=== PATIENT | male | born 1960 | race Caucasian/White ===

== ENCOUNTER 2019-11-08 02:25 | Emergency (ER) | payer MEDICAID ==
[2019-11-08] MEDS ORDERED: methylPREDNISolone Sodium Succinate 125 MG/2 ML SDV IM ONE (02:36)
[2019-11-08] MEDS ORDERED: Albuterol/Ipratropium 3.0-0.5 MG/3 ML Neb Soln NEB ONE (02:37)
--- NOTE | 2019-11-08 02:46 | EDM.PDOC ---
ED HPI GENERAL MEDICAL PROBLEM - General Chief Complaint: General Stated Complaint: cough and cold x 2 days Time Seen by Provider: 11/08/19 02:35 Source of Information: Reports: Patient History Limitations: Reports: No Limitations - History of Present Illness INITIAL COMMENTS - FREE TEXT/NARRATIVE: Patient presented to the ED because of cough and cold x 2 days. there is no associated fever or chills but c/o dyspnea,although his oxygen saturation is normal. There is no fever/chills and his coughing is mostly non-productive. - Related Data Allergies Allergy/AdvReac Type Severity Reaction Status Date / Time No Known Allergies Allergy Verified 11/08/19 02:35 Home Meds: Home Meds Azithromycin [Zithromax] 250 mg PO DAILY #6 tab 11/08/19 [Rx] predniSONE [Prednisone] 40 mg PO DAILY #10 tablet 11/08/19 [Rx] Past Medical History Respiratory History: Reports: Other (See Below) Other Respiratory History: smoker 1 pack/day for 40 years. - Past Surgical History Musculoskeletal Surgical History: Reports: Other (See Below) Other Musculoskeletal Surgeries/Procedures:: back Sx. Social & Family History - Family History Family Medical History: Noncontributory ED ROS GENERAL - Review of Systems Review Of Systems: See Below Constitutional: Reports: No Symptoms HEENT: Reports: No Symptoms Respiratory: Reports: Shortness of Breath, Wheezing Cardiovascular: Reports: No Symptoms Endocrine: Reports: No Symptoms GI/Abdominal: Reports: Constipation ED EXAM, GENERAL - Physical Exam Exam: See Below Exam Limited By: No Limitations General Appearance: Alert, No Apparent Distress Ears: Normal External Exam, Normal Canal Nose: Normal Inspection, Normal Mucosa, No Blood, Nasal Tenderness Throat/Mouth: Normal Inspection Head: Atraumatic, Normocephalic Neck: Normal Inspection, Supple, Non-Tender, Full Range of Motion Respiratory/Chest: No Respiratory Distress, Lungs Clear, Normal Breath Sounds, No Accessory Muscle Use, Chest Non-Tender, Rhonchi, Wheezing Cardiovascular: Normal Peripheral Pulses, Regular Rate, Rhythm, No Edema GI/Abdominal: Normal Bowel Sounds Course - Vital Signs Text/Narrative:: [id number] solumedrol 125 mg IM x1 ibuprofen 800 mg with tylenol 1000 po x1 zofran 4 mg ODT Last Recorded V/S: Last Vital Signs Temp 36.9 C 11/08/19 02:35 Pulse 91 11/08/19 02:35 Resp 18 11/08/19 02:35 BP 138/87 11/08/19 02:35 Pulse Ox 94 L 11/08/19 02:35 - Orders/Labs/Meds Orders: Active Orders 24 hr Category Date Time Status RT Aerosol Therapy [RC] ASDIRECTED Care 11/08/19 02:37 Active Ondansetron [Zofran ODT] Med 11/08/19 02:49 Active 4 mg PO ONETIME PRN Medication Orders Ondansetron HCl (Zofran Odt) 4 mg PO ONETIME PRN PRN Reason: Nausea Meds: Medications Generic Name Dose Route Start Last Admin Trade Name Freq PRN Reason Stop Dose Admin Ondansetron HCl 4 mg 11/08/19 02:49 Zofran Odt PO ONETIME PRN Nausea Discontinued Medications Generic Name Dose Route Start Last Admin Trade Name Freq PRN Reason Stop Dose Admin Albuterol/Ipratropium 3 ml 11/08/19 02:37 11/08/19 02:42 Duoneb 3.0-0.5 Mg/3 Ml NEB 11/08/19 02:38 3 ml ONETIME ONE Administration Methylprednisolone Sodium Succinate 125 mg 11/08/19 02:36 11/08/19 02:42 Solu-Medrol IM 11/08/19 02:37 125 mg ONETIME ONE Administration Departure - Departure Time of Disposition: 03:15 Disposition: Home, Self-Care 01 Condition: Good Clinical Impression: COPD (chronic obstructive pulmonary disease) - Discharge Information Prescriptions: Azithromycin [Zithromax] 250 mg PO DAILY #6 tab predniSONE [Prednisone] 40 mg PO DAILY #10 tablet Instructions: Chronic Obstructive Pulmonary Disease Exacerbation, [id number] Referrals: PCP,None [Primary Care Provider] - Forms: ED Department Discharge Additional Instructions: Please read discharge instructions on COPD Try to smoke less while being treated Prednisone 40 mg daily for 5 days z-russ as directed Follow up if symptoms persist Sepsis Event Note - Evaluation Sepsis Screening Result: No Definite Risk - Focused Exam Vital Signs: Vital Signs Temp Pulse Resp BP Pulse Ox 11/08/19 02:35 36.9 C 91 18 138/87 94 L Date Exam was Performed: 11/08/19 Time Exam was Performed: 02:52 - My Orders Last 24 Hours: My Active Orders 03/03/20 02:37 RT Aerosol Therapy [RC] ASDIRECTED 11/08/19 02:49 Ondansetron [Zofran ODT] 4 mg PO ONETIME PRN - Assessment/Plan Last 24 Hours: My Active Orders 11/08/19 02:37 RT Aerosol Therapy [RC] ASDIRECTED 11/08/19 02:49 Ondansetron [Zofran ODT] 4 mg PO ONETIME PRN
[2019-11-08] MEDS ORDERED: Ondansetron 4 MG Tab.DIS PO PRN (02:49)
[2019-11-08] MEDS ORDERED: Ibuprofen 800 MG Tab PO ONE (02:55)
[2019-11-08] MEDS ORDERED: Acetaminophen 500 MG Tab PO ONE (02:55)
== END 2019-11-08 03:12 | disposition home or self-care (01) ==
LOC: FB.ED 02:25
DX: J44.9 Chronic obstructive pulmonary disease, unspecified (principal)
CPT/HCPCS: 94640; 96372; 99284; A9270; J2930; J7620-GY